=== PATIENT | female | born 1980 | race Hispanic/Latino ===

== ENCOUNTER 2018-12-22 16:20 | Outpatient (CLI) | payer OTHER ==
[2018-12-22 17:26] LABS: BHCG - Serum Negative (NEGATIVE); Pregs Control Background? CLEAR/WHITE (CLR/WHITE); Pregs Control Bar Appear? YES (CONTROL BAR)
== END 2018-12-22 16:21 | disposition home or self-care (01) ==
LOC: LABBT 16:20
PROVIDERS: ATTEND Obstetrics & Gynecology
DX: Z01.812 Encounter for preprocedural laboratory examination (principal); N92.0 Excessive and frequent menstruation with regular cycle; D21.9 Benign neoplasm of connective and other soft tissue, unspecified; N94.6 Dysmenorrhea, unspecified
CPT/HCPCS: 84703